=== PATIENT | female | born 1995 ===

== ENCOUNTER 2017-04-12 19:13 | Emergency (ER) | payer OTHER ==
[2017-04-12 19:31] VITALS: BP 130/86
--- NOTE | 2017-04-12 22:48 | ED ---
Skin Complaint - HPI Summary HPI Summary: Pt here w/ Rt thumb lac while trying to open a can of Spam. Sliced thumb on metal can top. Bleeding but is controlled w/ pressure. Denies numbness, tingling , weakness. Imms are UTD. - History of Current Complaint Chief Complaint: EDLacSutureRecheck Time Seen by Provider: 04/12/17 20:17 Stated Complaint: RT THUMB LAC Hx Obtained From: Patient, Family/Trust Manager Assistant - friend Pain Intensity: 3 - Allergy/Home Medications Allergies/Adverse Reactions: Allergies Allergy/AdvReac Type Severity Reaction Status Date / Time No Known Allergies Allergy Verified 04/12/17 19:31 PMH/Surg Hx/FS Hx/Imm Hx Previously Healthy: Yes Endocrine/Hematology History: Denies: Hx Anticoagulant Therapy, Hx Blood Disorders, Autoimmune Disease - Immunization History Immunizations Up to Date: Yes Infectious Disease History: No Infectious Disease History: Denies: Hx of Known/Suspected MRSA, Traveled Outside the [place] in Last 30 Days - Family History Known Family History: Positive: None - Social History Occupation: Student Lives: Dormitory/Roommates Alcohol Use: Occasionally Hx Substance Use: No Substance Use Type: Reports: None Hx Tobacco Use: No Smoking Status (MU): Never Smoked Tobacco Review of Systems Constitutional: Negative Positive: no symptoms reported Negative: Arthralgia, Myalgia, Decreased ROM, Edema Skin: Other - see HPI Neurological: Negative Psychological: Normal All Other Systems Reviewed And Are Negative: Yes Physical Exam Triage Information Reviewed: Yes Vital Signs On Initial Exam: Initial Vitals Temp Pulse Resp BP Pulse Ox 98.2 F 91 18 130/86 99 04/12/17 19:27 04/12/17 19:27 04/12/17 19:27 04/12/17 19:27 04/12/17 19:27 Vital Signs Reviewed: Yes Appearance: Positive: Well-Appearing, No Pain Distress, Well-Nourished Skin: Positive: Warm - linear laceration over palmar aspect of Rt thumb - no active bleeding Head/Face: Positive: Normal Head/Face Inspection Eyes: Positive: EOMI ENT: Positive: Hearing grossly normal Respiratory/Lung Sounds: Positive: Breath Sounds Present Cardiovascular: Positive: Pulses are Symmetrical in both Upper and Lower Extremities Musculoskeletal: Positive: Normal, Strength/ROM Intact Neurological: Positive: Normal, Sensory/Motor Intact, Alert, Oriented to Person Place, Time, CN Intact II-III Psychiatric: Positive: Normal Procedures - Laceration/Wound Repair 1 Location: upper extremity - Rt thumb Description: Linear Anesthesia: Digital, Lido Length, Depth and Shape: 1.5cm x 3mm Betadine Prep?: Yes Irrigated w/ Saline (ccs): 250 Laceration/Wound Explored: clean Closure: Single Layer Suture Type: Nylon - 5-0 Number of Sutures: 5 Layer Closure?: No Sterile Dressing Applied?: Yes - triple anbx ointment + gauze + coban Diagnostics - Vital Signs Vital Signs Temp Pulse Resp BP Pulse Ox 04/12/17 19:27 98.2 F 91 18 130/86 99 - Laboratory Lab Statement: Any lab studies that have been ordered have been reviewed, and results considered in the medical decision making process. Course/Dx - Diagnoses Provider Diagnoses: Laceration of right thumb Discharge - Discharge Plan Condition: Stable Disposition: HOME Patient Education Materials: Finger Laceration (ED), Care For Your Stitches (ED ) Referrals: [facility] - Anand BRADEN [Primary Care Provider] - Additional Instructions: Keep dressing clean, dry and intact in 48 hours. After this time, you may remove dressing and gently wash wound daily with soap and water - rinse well and pat dry with clean cloth then reapply triple antibiotic ointment, clean gauze and wrap. Follow-up with PCP in 10 days for wound check and suture removal. Call today to schedule appointment. In the meantime, rest, ice, elevate for pain, swelling You may take ibuprofen with food for pain. *If you develop redness, swelling, streaking, purulent drainage, fever, chills, seek medical attention sooner
== END 2017-04-12 22:57 | disposition home or self-care (01) ==
LOC: ED 19:13
DX: S61.011A Laceration without foreign body of right thumb without damage to nail, initial encounter (principal); W45.8XXA Other foreign body or object entering through skin, initial encounter; Y92.9 Unspecified place or not applicable
CPT/HCPCS: 12001; 99282